=== PATIENT | male | born 1965 | race Caucasian/White ===

== ENCOUNTER 2018-01-27 21:15 | Emergency (ER) | payer MEDICAID, OTHER ==
[~2018-01-27] VITALS: Ht 182.9 cm; Wt 92.1 kg
[~2018-01-27 21:15] MED LIST: DIVA500T2; DIVA500T4 PO; LEVO50CA2 PO; LISI-170 PO; LITH600C PO; METF500T27 PO; MULT1CAP19 PO; SERT100T PO
[2018-01-27] MEDS ORDERED: ONDANSETRON ODT 4 MG ONE (21:39)
[2018-01-27] MEDS ORDERED: LORazepam 1MG TABLET ONE (21:39)
[2018-01-27 21:51] LABS: MICROSCOPIC NOT IND
[2018-01-27 21:55] LABS: AMPHETAMINE SCREEN, URINE Negative (Negative); BARBITURATE SCREEN, URINE Negative (Negative); BENZODIAZEPINE SCREEN, URINE Negative (Negative); CANNABINOID SCREEN, URINE Positive (Negative); COCAINE SCREEN, URINE Negative (Negative); METHADONE SCREEN, URINE Negative (Negative); OPIATE SCREEN, URINE Negative (Negative)
[2018-01-27 21:56] LABS: CULTURE INDICATED? NO
[2018-01-27] MEDS ORDERED: ZIPRASIDONE 20 MG INJ IM ONE ×3 (22:00→23:01)
[2018-01-27] MEDS ORDERED: ONDANSETRON ODT 4 MG PO ONE (22:00)
[2018-01-27] MEDS ORDERED: LORazepam 1MG TABLET PO ONE (22:00)
[2018-01-27 22:01] LABS: BASOPHILS # (AUTO) 0.02 x10^3/uL (0-0.1); BASOPHILS % (AUTO) 0 % (0-1); EOSINOPHILS # (AUTO) 0.15 x10^3/uL (0-0.4); EOSINOPHILS % (AUTO) 1 % (1-7); LYMPHOCYTES # (AUTO) 1.92 x10^3/uL (1-3.4); LYMPHOCYTES % (AUTO) 18 % (22-44); MD NO; MEAN CORPUSCULAR HEMOGLOBIN 30.5 pg (27.5-34.5); MEAN CORPUSCULAR HGB CONC 33.6 g/dL (33.2-36.2); MEAN CORPUSCULAR VOLUME 90.8 fL (81-97); MONOCYTES # (AUTO) 0.72 x10^3/uL (0.2-0.8); MONOCYTES % (AUTO) 7 % (2-9); NEUTROPHILS # (AUTO) 8.06 x10^3/uL (1.8-6.8); NEUTROPHILS % (AUTO) 74 % (42-75); PLATELET COUNT 226 x10^3/uL (130-400); RED CELL DISTRIBUTION WIDTH 13.2 % (9.4-14.8)
[2018-01-27 22:12] LABS: ALANINE AMINOTRANSFERASE 30 U/L (12-78); ANION GAP 10 mmol/L (5-15); CALCIUM 8.7 mg/dL (8.5-10.1); CHLORIDE 104 mmol/L (98-107); CREATININE 0.97 mg/dL (0.7-1.3)
[2018-01-27 22:16] LABS: ALKALINE PHOSPHATASE 104 U/L (45-117); BILIRUBIN,TOTAL 0.7 mg/dL (0.2-1.0); SALICYLATE LEVEL 3.6 mg/dL (2.8-20.0); TOTAL PROTEIN 7.6 g/dL (6.4-8.2)
[2018-01-27 22:17] LABS: ACETAMINOPHEN < 2 mcg/mL (10-30)
[2018-01-27 23:19] VITALS: BP 109/76
== END 2018-01-27 23:20 | disposition home or self-care (01) ==
LOC: ED 23:05
DX: A09 Infectious gastroenteritis and colitis, unspecified (principal); F31.89 Other bipolar disorder; I10 Essential (primary) hypertension; E11.9 Type 2 diabetes mellitus without complications; F17.200 Nicotine dependence, unspecified, uncomplicated; Z90.49 Acquired absence of other specified parts of digestive tract
CPT/HCPCS: 36415; 80053; 80307; 80329; 81003; 83690; 85025; 96372; 99283; J3486; Q0162; G0480